=== PATIENT | male | born 1970 | race American Indian/Alaskan Native ===

== ENCOUNTER 2020-01-13 10:59 | Outpatient (CLI) | payer OTHER ==
--- NOTE | 2020-01-13 13:38 | XRay Report ---
CHEST 2 VIEWS INDICATION / CLINICAL INFORMATION: RIB PAIN, CIRCULATION PROBLEMS. COMPARISON: None available. FINDINGS: SUPPORT DEVICES: None. HEART / MEDIASTINUM: No significant abnormality. LUNGS / PLEURA: No significant pulmonary or pleural abnormality. No pneumothorax. ADDITIONAL FINDINGS: No significant additional findings. IMPRESSION: No significant abnormality Signer Name: Cuco Lucio MD FACR Signed: 01/13/2020 1:33 PM Workstation Name: [email or web address]
--- NOTE | 2020-01-13 13:38 | XRay Report ---
LUMBAR SPINE 3 VIEWS INDICATION / CLINICAL INFORMATION: RIB BACK PAIN, CIRCULATION PROBLEMS. COMPARISON: None available. FINDINGS: No significant skeletal abnormality. Alignment is normal. Signer Name: Cuco Lucio MD FACGino Signed: 01/13/2020 1:34 PM Workstation Name: [id number]
== END 2020-01-13 11:00 | disposition home or self-care (01) ==
LOC: XRAY 10:59
PROVIDERS: ATTEND Internal Medicine
DX: R07.81 Pleurodynia (principal); M54.5 Low back pain
CPT/HCPCS: 71046; 72100

== ENCOUNTER 2021-09-01 22:28 | Emergency (ER) | payer SELFPAY ==
[2021-09-01 22:44] VITALS: BP 139/95
[2021-09-02] MEDS ORDERED: SODIUM CHLORIDE 0.9% 1000 ML 1,000 ML IV ONE (02:55)
[2021-09-02] MEDS ORDERED: ONDANSETRON 4 MG/2 ML INJ IV ONE (02:55)
[2021-09-02] MEDS ORDERED: KETOROLAC 30 MG/1 ML INJ IV ONE (02:56)
[2021-09-02 03:40] LABS: Basophils # (Auto) 0.1 K/mm3 (0.0-0.1); Basophils % (Auto) 0.9 % (0.0-1.8); Eosinophils # (Auto) 0.3 K/mm3 (0.0-0.4); Eosinophils % (Auto) 2.8 % (0.0-4.3); Hematocrit 43.3 % (35.5-45.6); Hemoglobin 14.3 gm/dl (11.8-15.2); Lymphocytes # (Auto) 2.8 K/mm3 (1.2-5.4); Lymphocytes % (Auto) 25.9 % (13.4-35.0); Mean Corpuscular HGB Conc 33 % (32-34); Mean Corpuscular Volume 87 fl (84-94); Monocytes # (Auto) 0.6 K/mm3 (0.0-0.8); Monocytes % (Auto) 5.2 % (0.0-7.3); Platelet Count 268 K/mm3 (140-440); Red Blood Count 4.99 M/mm3 (3.65-5.03); Red Cell Distribution Width 14.2 % (13.2-15.2)
[2021-09-02 03:46] LABS: INR 0.85 (0.87-1.13)
[2021-09-02 03:48] LABS: Creatine Kinase MB 1.7 ng/mL (0.0-4.0)
[2021-09-02 03:49] LABS: Alanine Aminotransferase 18 units/L (7-56); Albumin 4.2 g/dL (3.9-5); BUN/Creatinine Ratio 9; Blood Urea Nitrogen 11 mg/dL (9-20); Calcium 9.4 mg/dL (8.4-10.2); Hemolysis Index 41
--- NOTE | 2021-09-02 04:00 | XRay Report ---
CHEST 1 VIEW 09/02/2021 2:47 AM INDICATION / CLINICAL INFORMATION: Lightheadedness/Dizziness. COMPARISON: 01/13/2020 FINDINGS: SUPPORT DEVICES: None. HEART / MEDIASTINUM: No significant abnormality. LUNGS / PLEURA: No significant pulmonary or pleural abnormality. No pneumothorax. ADDITIONAL FINDINGS: No significant additional findings. IMPRESSION: 1. No acute findings. Signer Name: Errol Terry DO Signed: 09/02/2021 3:56 AM Workstation Name: [id number]
--- NOTE | 2021-09-02 05:27 | Cat Scan Report ---
CT HEAD WITHOUT CONTRAST INDICATION / CLINICAL INFORMATION: headache. TECHNIQUE: All CT scans at this location are performed using CT dose reduction for ALARA by means of automated exposure control. COMPARISON: None available. FINDINGS: HEMORRHAGE: None. EXTRA-AXIAL SPACES: Normal in size and morphology for the patient's age. VENTRICULAR SYSTEM: Normal in size and morphology for the patient's age. CEREBRAL PARENCHYMA: No significant abnormality. No acute territorial infarct. MIDLINE SHIFT / HERNIATION: None. CEREBELLUM / BRAINSTEM: No significant abnormality. ORBITS: Normal as visualized SOFT TISSUES: No significant abnormality. SKULL: No significant abnormality. PARANASAL SINUSES / MASTOID AIR CELLS: Normal as visualized ADDITIONAL FINDINGS: None. IMPRESSION: 1. No acute intracranial abnormality. Signer Name: Errol Terry DO Signed: 09/02/2021 5:22 AM Workstation Name: [id number]
--- NOTE | 2021-09-02 05:47 | Emergency Department Report ---
ED General Adult HPI - General Chief complaint: Dizziness Stated complaint: EYE HURTING/PAIN IN RIB Time Seen by Provider: 09/02/21 02:49 Source: patient Mode of arrival: Ambulatory Limitations: No Limitations - History of Present Illness Initial comments: Pt reports dizziness, blurry vision, tension headache onset today while eating dinner. Pt also reports RT rib pain x 2 years. Pt reports GONGORA 6/10 on pain scale. Pt is aaox4, NADN. -: week(s) Location: head, chest Radiation: non-radiation Severity scale (0 -10): 8 Worsens with: none Associated Symptoms: chest pain, headaches. denies: denies other symptoms, confusion - Related Data Previous Rx's Medication Instructions Recorded Last Taken Type methylPREDNISolone [Medrol 4MG 4 mg PO UNK #1 09/02/21 Unknown Rx DOSEPAK (21 tabs)] valACYclovir [Valtrex] 500 mg PO BID #10 tab 09/02/21 Unknown Rx Allergies Allergy/AdvReac Type Severity Reaction Status Date / Time No Known Allergies Allergy Unverified 09/01/21 22:39 ED Review of Systems ROS: Stated complaint: EYE HURTING/PAIN IN RIB Other details as noted in HPI Constitutional: denies: chills, fever Eyes: denies: eye pain, eye discharge, vision change ENT: denies: ear pain, throat pain Respiratory: denies: cough, shortness of breath, wheezing Cardiovascular: denies: chest pain, palpitations Endocrine: no symptoms reported Gastrointestinal: denies: abdominal pain, nausea, diarrhea Genitourinary: denies: urgency, dysuria Musculoskeletal: denies: back pain, joint swelling, arthralgia Skin: denies: rash, lesions Neurological: denies: headache, weakness, paresthesias Psychiatric: denies: anxiety, depression Hematological/Lymphatic: denies: easy bleeding, easy bruising ED Past Medical Hx - Past Medical History Previous Medical History?: Yes Hx Asthma: Yes (Childhood) - Surgical History Past Surgical History?: Yes 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 - Social History Smoking Status: Current Every Day Smoker Substance Use Type: None - Medications Home Medications: Home Medications Medication Instructions Recorded Confirmed Last Taken Type methylPREDNISolone [Medrol 4MG 4 mg PO UNK #1 09/02/21 Unknown Rx DOSEPAK (21 tabs)] valACYclovir [Valtrex] 500 mg PO BID #10 tab 09/02/21 Unknown Rx ED Physical Exam - General Limitations: No Limitations General appearance: alert, in no apparent distress - Head Head exam: Present: atraumatic, normocephalic - Eye Eye exam: Present: normal appearance, other (right eye with opacity ) - ENT ENT exam: Present: mucous membranes moist - Neck Neck exam: Present: normal inspection - Respiratory Respiratory exam: Present: normal lung sounds bilaterally. Absent: respiratory distress - Cardiovascular Cardiovascular Exam: Present: regular rate, normal rhythm. Absent: systolic murmur, diastolic murmur, rubs, gallop - GI/Abdominal GI/Abdominal exam: Present: soft, normal bowel sounds - Rectal Rectal exam: Present: deferred - Extremities Exam Extremities exam: Present: normal inspection - Back Exam Back exam: Present: normal inspection - Neurological Exam Neurological exam: Present: alert, oriented X3 - Psychiatric Psychiatric exam: Present: normal affect, normal mood - Skin Skin exam: Present: warm, dry, intact, normal color. Absent: rash ED Course Vital Signs 09/01/21 09/02/21 22:40 04:05 Temperature 98.4 F Pulse Rate 75 Respiratory 18 16 Rate Blood Pressure 139/95 O2 Sat by Pulse 98 Oximetry ED Medical Decision Making - Lab Data Result diagrams: 09/02/21 03:12 09/02/21 03:12 - Radiology Data Radiology results: report reviewed, image reviewed - Medical Decision Making work up negative , head ct negative x ray clear work up neg , pain seems simialr to shingles without rash, headache seems chronic Critical care attestation.: If time is entered above; I have spent that time in minutes in the direct care of this critically ill patient, excluding procedure time. ED Disposition Clinical Impression: Dizziness, Chest wall pain Disposition: HOME / SELF CARE / HOMELESS Is pt being admited?: No Does the pt Need Aspirin: No Condition: Stable Instructions: Nonspecific Chest Pain, Adult Referrals: LISSETTE STEPHENS MD [Primary Care Provider] - 3-5 Days
--- NOTE | 2021-09-04 10:34 | Electrocardiograph Report ---
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
== END 2021-09-02 07:00 | disposition home or self-care (01) ==
LOC: ED 22:28
DX: R07.89 Other chest pain (principal); R42 Dizziness and giddiness; J45.909 Unspecified asthma, uncomplicated; Z98.890 Other specified postprocedural states; F17.290 Nicotine dependence, other tobacco product, uncomplicated
CPT/HCPCS: 36415; 70450; 71045; 80053; 82550; 82553; 84484; 85025; 85610; 93005; 96361; 96374; 96375; 99284; J1885; J2405; J7030; 80320; G0480

== ENCOUNTER 2021-11-24 13:08 | Emergency (ER) | payer SELFPAY ==
[2021-11-24 13:26] VITALS: BP 130/77
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
== END 2021-11-24 19:15 | disposition left against medical advice (07) ==
LOC: ED 13:08
DX: S69.91XA Unspecified injury of right wrist, hand and finger(s), initial encounter (principal); Z53.21 Procedure and treatment not carried out due to patient leaving prior to being seen by health care provider; X58.XXXA Exposure to other specified factors, initial encounter; Y93.89 Activity, other specified; Y92.89 Other specified places as the place of occurrence of the external cause; Y99.8 Other external cause status

== ENCOUNTER 2021-11-25 23:42 | Emergency (ER) | payer SELFPAY ==
[2021-11-26] MEDS ORDERED: SODIUM CHLORIDE 0.9% 1000 ML 1,000 ML IV ONE ×2 (00:07→00:17)
[2021-11-26] MEDS ORDERED: MORPHINE 4 MG/1 ML INJ IV ONE (00:07)
[2021-11-26] MEDS ORDERED: ONDANSETRON 4 MG/2 ML INJ IV ONE (00:15)
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
[2021-11-26] MEDS ORDERED: BACITRACIN/POLYMYXIN B OINT 28.35 GM TP ONE (00:20)
[2021-11-26] MEDS ORDERED: fentaNYL 100 MCG/2 ML INJ IV ONE (00:20)
[2021-11-26] MEDS ORDERED: NEOMY 3.5 MG/BACIT 400 UNITS/POLY B 5000 UNITS/GM OINT PACKET TP ONE (00:37)
[2021-11-26 00:39] LABS: Hematocrit 46.1 % (35.5-45.6); Hemoglobin 14.9 gm/dl (11.8-15.2); Mean Corpuscular HGB Conc 32 % (32-34); Mean Corpuscular Volume 89 fl (84-94); Platelet Count 311 K/mm3 (140-440); Red Cell Distribution Width 14.4 % (13.2-15.2)
[2021-11-26 01:07] LABS: Alanine Aminotransferase 35 units/L (7-56); BUN/Creatinine Ratio 9; Blood Urea Nitrogen 15 mg/dL (9-20); Hemolysis Index 48
[2021-11-26 01:08] LABS: Albumin 4.5 g/dL (3.9-5); Calcium 9.3 mg/dL (8.4-10.2)
[2021-11-26 02:02] LABS: Creatine Kinase MB 2.1 ng/mL (0.0-4.0)
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
[2021-11-26] MEDS ORDERED: oxyCODONE /ACETAMINOPHEN 5-325MG TAB PO PRN (04:01)
[2021-11-26] MEDS ORDERED: methylPREDNISolone Sod Succinate 40 MG/1 ML INJ IV ONE (04:06)
[2021-11-26] MEDS ORDERED: KETOROLAC 30 MG/1 ML INJ IV ONE (04:06)
[2021-11-26] MEDS ORDERED: CYCLOBENZAPRINE 10 MG TAB PO ONE (04:06)
[2021-11-26] MEDS ORDERED: diazePAM 2 MG TAB PO ONE (04:07)
[2021-11-26] MEDS ORDERED: LACTATED RINGERS 1000 ML IV SOLN IV SCH (04:15)
[2021-11-26 05:06] LABS: Calcium 8.8 mg/dL (8.4-10.2)
[2021-11-26 07:56] VITALS: BP 118/78
--- NOTE | 2021-11-28 09:28 | Electrocardiograph Report ---
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
== END 2021-11-26 07:56 | disposition home or self-care (01) ==
LOC: ED 23:42
DX: S70.312A Abrasion, left thigh, initial encounter (principal); S70.311A Abrasion, right thigh, initial encounter; M50.30 Other cervical disc degeneration, unspecified cervical region; M62.82 Rhabdomyolysis; J45.909 Unspecified asthma, uncomplicated; V89.2XXA Person injured in unspecified motor-vehicle accident, traffic, initial encounter; Y93.89 Activity, other specified; Y92.89 Other specified places as the place of occurrence of the external cause; Y99.8 Other external cause status; Z79.899 Other long term (current) drug therapy
CPT/HCPCS: 36415; 70450; 71260; 72125; 73030; 73060; 73090; 73120; 73552; 73590; 73620; 74177; 80048; 80053; 82550; 82553; 83690; 84484; 85027; 93005; 96361; 96374; 96375; 99285; J1885; J2405; J2920; J3010; J7030; Q9967; 99284

== ENCOUNTER 2021-11-29 13:56 | Emergency (ER) | payer OTHER ==
[2021-11-29] MEDS ORDERED: ACETAMINOPHEN 500 MG TAB PO STA (20:06)
[2021-11-29 21:35] LABS: Basophils % (Auto) 0.4 % (0.0-1.8); Eosinophils # (Auto) 0.5 K/mm3 (0.0-0.4); Eosinophils % (Auto) 5.1 % (0.0-4.3); Hematocrit 42.6 % (35.5-45.6); Hemoglobin 14.3 gm/dl (11.8-15.2); Lymphocytes % (Auto) 10.6 % (13.4-35.0); Mean Corpuscular HGB Conc 34 % (32-34); Mean Corpuscular Volume 88 fl (84-94); Monocytes # (Auto) 0.6 K/mm3 (0.0-0.8); Monocytes % (Auto) 6.1 % (0.0-7.3); Platelet Count 257 K/mm3 (140-440); Red Blood Count 4.86 M/mm3 (3.65-5.03)
[2021-11-29 21:50] LABS: INR 0.96 (0.87-1.13)
[2021-11-29 22:05] LABS: Alanine Aminotransferase 26 units/L (7-56); BUN/Creatinine Ratio 9; Blood Urea Nitrogen 11 mg/dL (9-20); Calcium 8.8 mg/dL (8.4-10.2); Hemolysis Index 9
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
[2021-11-30] MEDS ORDERED: MORPHINE 4 MG/1 ML INJ IM ONE (03:49)
[2021-11-30] MEDS ORDERED: HYDROcodone/ACETAMINOPHEN 5-325 MG TAB PO ONE (05:26)
[2021-11-30 05:39] VITALS: BP 154/72
== END 2021-11-30 05:38 | disposition home or self-care (01) ==
LOC: ED 13:56
DX: S90.32XA Contusion of left foot, initial encounter (principal); S70.312A Abrasion, left thigh, initial encounter; J45.909 Unspecified asthma, uncomplicated; V89.2XXA Person injured in unspecified motor-vehicle accident, traffic, initial encounter; Y93.89 Activity, other specified; Y92.89 Other specified places as the place of occurrence of the external cause; Y99.8 Other external cause status
CPT/HCPCS: 36415; 80053; 82140; 82805; 85025; 85610; 87040; 96372; 99283; J2270